=== PATIENT | female | born 1995 | race Caucasian/White ===

== ENCOUNTER 2025-03-03 10:27 | Inpatient (IN) | payer OTHER ==
[~2025-03-03] VITALS: Ht 152.4 cm; Wt 61.5 kg
[2025-03-03 10:51] LABS: BASOPHILS 0.3 % (0.1-1.2); EOSINOPHILS 1.0 % (0.7-5.8); LYMPHOCYTES 27.7 % (19.3-51.7); MCH 30.5 PG (25.6-32.2); MCHC 35.0 g/dL (32.2-35.5); MCV 87.3 fL (79.4-94.8); MONOCYTES 6.8 % (4.7-12.5); NEUTROPHILS 63.9 % (34.0-71.1); RBC 3.93 M/uL (3.93-5.22)
[2025-03-03 10:52] LABS: BLOOD/HGB, URINE TRACE-I (Negative); KETONE, URINE NEGATIVE (Negative); LEUK ESTERASE, URINE MODERATE (negative); NITRITE, URINE POSITIVE (negative)
[2025-03-03] MEDS ORDERED: ALBUTEROL SULFATE 0.5% 2.5 MG/0.5 ML VIAL ONE (10:52)
[2025-03-03 10:57] LABS: BACTERIA, URINE 3+ /hpf (negative); CASTS, URINE NONE SEEN \\lpf; CRYSTALS, URINE NONE SEEN (0-1+); REFLEX CULTURE, URINE Yes (No)
[2025-03-03] MEDS ORDERED: ALBUTEROL SULFATE 0.5% 2.5 MG/0.5 ML VIAL INH ONE (11:00)
[2025-03-03] MEDS ORDERED: SODIUM CHLORIDE 0.9% 1,000 ML IV PRN ×3 (11:00→12:15)
[2025-03-03 11:12] LABS: ALCOHOL, MEDICAL 3 ng/dL (<3); ALT (SGPT) 14 U/L (14-59); AST (SGOT) 12 U/L (15-37); GLOMERULAR FILTRATION RATE,EST 80 mL/min (>60); PROTEIN, TOTAL 7.1 g/dL (6.4-8.2); UREA NITROGEN 6 mg/dL (7-18)
[2025-03-03 11:13] LABS: AMPHETAMINES, URINE POSITIVE (NEGATIVE); BARBITURATES, URINE NEGATIVE (NEGATIVE); BENZODIAZEPINE, URINE NEGATIVE (NEGATIVE); CANNABINOID, URINE NEGATIVE (NEGATIVE); COCAINE, URINE NEGATIVE (NEGATIVE); ECSTASY, URINE POSITIVE (NEGATIVE); FENTANYL, URINE NEGATIVE (NEGATIVE); METHADONE, URINE NEGATIVE (NEGATIVE); OPIATES, URINE NEGATIVE (NEGATIVE); OXYCODONE, URINE NEGATIVE (NEGATIVE); PHENCYCLIDINE, URINE NEGATIVE (NEGATIVE)
[2025-03-03] MEDS ORDERED: NALOXONE HCL 2 MG/2 ML SYR IV ONE (11:15)
[2025-03-03] MEDS ORDERED: NALOXONE HCL 2 MG/2 ML SYR NAS ONE (11:15)
[2025-03-03] MEDS ORDERED: POTASSIUM CHLORIDE IV SCH ×2 (14:15)
[2025-03-03] MEDS ORDERED: NACL 0.45% IV SCH ×2 (14:15)
[2025-03-03] MEDS ORDERED: POTASSIUM ACETATE IV SCH (14:15)
[2025-03-03] MEDS ORDERED: DEXTROSE 5% IV SCH ×2 (14:15)
[2025-03-03] MEDS ORDERED: 1/2 SODIUM CHLORIDE IV SCH (14:15)
[2025-03-03] MEDS ORDERED: DEXTROSE IV SCH (14:15)
[2025-03-03 21:04] VITALS: BP 81/61
[2025-03-03 21:30] VITALS: BP 86/64
[2025-03-03] MEDS ORDERED: ACETAMINOPHEN 325 MG TAB PO PRN (21:45)
[2025-03-03] MEDS ORDERED: LACTATED RINGER'S 1,000 ML IV SCH (21:45)
[2025-03-03] MEDS ORDERED: ACETAMINOPHEN 325 MG TAB PT PRN (21:45)
--- NOTE | 2025-03-03 21:55 | EKG ---
[facility] [address] [facility] [place], [place] [address] Signed Sinus tachycardia Nonspecific T wave abnormality Abnormal ECG No previous ECGs available Confirmed by Jovi Sifuentes DO ([id number]) on 03/03/2025 9:55:18 PM Electronically Signed By: JOVI SIFUENTES DO [id number]/03/[id number] PATIENT NAME: DANITZA JEREZ Electrocardiogram DATE OF : [birth year] PHYSICIAN: JOVI SIFUENTES DO REPORT #: [id number] REPORT IS CONFIDENTIAL AND NOT TO BE RELEASED WITHOUT AUTHORIZATION
[2025-03-03 22:00] VITALS: BP 90/57
[2025-03-03 22:30] VITALS: BP 84/60
[2025-03-03 23:00] VITALS: BP 91/64
[2025-03-03 23:30] VITALS: BP 97/69
[2025-03-04] VITALS (38 sets, daily range): BP systolic 82–127; BP diastolic 50–76
[2025-03-04 05:48] LABS: BASOPHILS 0.3 % (0.1-1.2); EOSINOPHILS 1.7 % (0.7-5.8); LYMPHOCYTES 26.6 % (19.3-51.7); MCH 30.5 PG (25.6-32.2); MCHC 34.4 g/dL (32.2-35.5); MCV 88.8 fL (79.4-94.8); MONOCYTES 5.9 % (4.7-12.5); NEUTROPHILS 65.2 % (34.0-71.1); RBC 3.21 M/uL (3.93-5.22)
[2025-03-04 06:14] LABS: ALT (SGPT) 12.0 U/L (14-59); AST (SGOT) 9.0 U/L (15-37); GLOMERULAR FILTRATION RATE,EST 111.0 mL/min (>60); PROTEIN, TOTAL 5.6 g/dL (6.4-8.2); UREA NITROGEN 2.0 mg/dL (7-18)
[2025-03-04] MEDS ORDERED: MAGNESIUM SULFATE 2 GM/50 ML BAG IV ONE (07:45)
--- NOTE | 2025-03-04 10:09 | EKG ---
[facility] [address] [facility] [place] [address] Signed Normal sinus rhythm Normal ECG When compared with ECG of 03-MAR-2025 11:07, QT has shortened Confirmed by Jovi Sifuentes DO ([id number]) on 03/04/2025 10:09:02 AM Electronically Signed By: JOVI SIFUENTES DO 03/04/25 1009 PATIENT NAME: DANITZA JEREZ Electrocardiogram DATE OF : [birth year] PHYSICIAN: JOVI SIFUENTES DO REPORT #: [id number] REPORT IS CONFIDENTIAL AND NOT TO BE RELEASED WITHOUT AUTHORIZATION
[2025-03-04] MEDS ORDERED: PHARMACY RENAL DOSE ADJUSTMENT 1 DOSE MISC PO SCH (12:00)
[2025-03-05] VITALS (9 sets, daily range): BP systolic 96–128; BP diastolic 64–90
[2025-03-05 05:55] LABS: ALT (SGPT) 8.0 U/L (14-59); AST (SGOT) 9.0 U/L (15-37); GLOMERULAR FILTRATION RATE,EST 120.0 mL/min (>60); PROTEIN, TOTAL 5.7 g/dL (6.4-8.2); UREA NITROGEN 4.0 mg/dL (7-18)
[2025-03-05] MEDS ORDERED: FLUCONAZOLE 150 MG TAB PO ONE (08:45)
[2025-03-05] MEDS ORDERED: NICOTINE 21 MG/24 HR 1 EA TDSY TD SCH (09:00)
[2025-03-05] MEDS ORDERED: TRIMETHOPRIM/SULFAMETHOXAZOLE 1 EA TAB PO SCH (09:00)
[2025-03-05] MEDS ORDERED: LACTOBACILLUS RHAMNOSUS GG 1 EACH CAP PO SCH (09:00)
[2025-03-05] MEDS ORDERED: MULTIVITAMINS THERAPEUTIC 1 EA TAB PO SCH (09:00)
[2025-03-05] MEDS ORDERED: VENTOLIN HFA18 GM INH (09:29)
[2025-03-05] MEDS ORDERED: CELECOXIB200 MG PO (09:29)
[2025-03-05] MEDS ORDERED: GABAPENTIN600 MG PO (09:31)
[2025-03-05] MEDS ORDERED: PANTOPRAZOLE SO40 MG PO (09:37)
[2025-03-05] MEDS ORDERED: VALACYCLOVIR1000 MG PO (12:44)
[2025-03-05] MEDS ORDERED: HYDROXYZINE HCL50 MG PO (12:45)
[2025-03-05] MEDS ORDERED: METOCLOPRAMIDE H5 MG PO (12:46)
[2025-03-05] MEDS ORDERED: ABILIFY15 MG PO (12:47)
[2025-03-05] MEDS ORDERED: WELLBUTRIN XL150 MG PO (12:48)
[2025-03-05] MEDS ORDERED: LAMICTAL200 MG PO (12:49)
[2025-03-05] MEDS ORDERED: ARIPiprazole 5 MG TAB PO SCH (13:36)
[2025-03-05] MEDS ORDERED: buPROPion HCL XL 150 MG TAB.XL.24H PO SCH (13:37)
[2025-03-05] MEDS ORDERED: lamoTRIgine 100 MG TAB PO SCH (13:38)
[2025-03-05] MEDS ORDERED: VALACYCLOVIR HCL 500 MG TAB PO PRN (13:45)
[2025-03-05] MEDS ORDERED: METOCLOPRAMIDE HCL 5 MG TAB PO PRN (13:45)
[2025-03-05] MEDS ORDERED: PANTOPRAZOLE SODIUM 40 MG TABEC PO PRN (13:45)
[2025-03-05] MEDS ORDERED: BUSPIRONE HCL30 MG PO (13:54)
[2025-03-05] MEDS ORDERED: ZYRTEC10 MG PO (13:55)
[2025-03-05] MEDS ORDERED: CYCLOBENZAPRINE10 MG PO (13:55)
[2025-03-05] MEDS ORDERED: EPIN0.3P IM (13:55)
[2025-03-05] MEDS ORDERED: PEPCID40 MG PO (13:56)
[2025-03-05] MEDS ORDERED: FLONASE ALLERG9.9 ML NAS (13:57)
[2025-03-05] MEDS ORDERED: ATIVAN1 MG PO ×2 (13:57→15:50)
[2025-03-05] MEDS ORDERED: OXYBUTYNIN CHLO10 MG PO (13:58)
[2025-03-05] MEDS ORDERED: PANTOPRAZOLE SODIUM 40 MG TABEC PO SCH (14:30)
[2025-03-05] MEDS ORDERED: GABAPENTIN 300 MG CAP PO SCH (15:00)
[2025-03-05] MEDS ORDERED: ALBUTEROL SULFATE 0.083% 3 ML VIAL INH PRN (16:00)
[2025-03-06 08:54] VITALS: BP 106/76
[2025-03-06 12:43] VITALS: BP 99/74
[2025-03-06 17:40] VITALS: BP 105/72
[2025-03-06 21:30] VITALS: BP 101/70
[2025-03-07 02:31] VITALS: BP 98/67
[2025-03-07] MEDS ORDERED: SULFAMETHOXAZO1 EAC1 PO (06:26)
[2025-03-07] MEDS ORDERED: VALACYCLOVIR500 MG PO (06:26)
[2025-03-07] MEDS ORDERED: GABAPENTIN300 MG PO (06:27)
[2025-03-07 08:12] VITALS: BP 106/74
== END 2025-03-07 08:15 | DRG 918 ==
LOC: ED 10:27 → CCU 20:07
PROVIDERS: Emergency Medicine; ADMIT Student in an Organized Health Care Education/Training Program; ATTEND Student in an Organized Health Care Education/Training Program
DX: T44.6X1A Poisoning by alpha-adrenoreceptor antagonists, accidental (unintentional), initial encounter (principal); N39.0 Urinary tract infection, site not specified; F32.9 Major depressive disorder, single episode, unspecified; Z91.51 Personal history of suicidal behavior; Z88.0 Allergy status to penicillin; Z91.040 Latex allergy status; Z88.5 Allergy status to narcotic agent; Z91.030 Bee allergy status; Z91.038 Other insect allergy status
CPT/HCPCS: 36415; 80053; 80307; 81001; 83735; 84703; 85025; 87077; 87088; 87186; 93005; 93010; 94644; A9270; G0480; J0696; J2312; J3475; J3480; J7030; J7121